=== PATIENT | female | born 1985 | race Caucasian/White ===

== ENCOUNTER 2016-08-31 01:59 | Emergency (ER) | payer SELFPAY ==
[~2016-08-31] VITALS: Ht 160 cm; Wt 81.6 kg
[~2016-08-31 01:59] MED LIST: ALDOMET500 MG PO; CALCIUM + VIT1 EACH PO; COLACE100 MG PO; DOXYCYCLINE HY100 MG PO; ENOXAPARIN SC; FENUGREEK500 MG PO; FLEXERIL10 MG PO; FLINTSTONES CO1 EACH; FLINTSTONES VITAMIN PO; FLINTSTONES1 TABLET PO; HYDRALAZINE HCL10 MG PO; IRON325 M1 PO; LOPRESSOR100 M1 PO; PHENERGAN25 MG PR; PRENATAL MULTI1 EAC2 PO; PRENATAL TABLE1 EACH PO; PRENATAL VITAM1 EAC3 PO; PRINIVIL10 MG PO; REGLAN10 MG PO; Tylenol Regular Stre PO; ULTRAM50 MG PO; VICODIN,LORT1 TABLET PO; ZOFRAN ODT4 MG PO; ZOFRAN4 MG PO; ZOFRAN8 M1 PO; ZOFRAN8 MG PO; Zantac PO; [UNRECOGNIZED DRUG - OTHER] PO; [UNRECOGNIZED DRUG - OTHER] SC
[2016-08-31 02:41] LABS: EOSINOPHIL (%) 1.3 % (0-5); EOSINOPHIL COUNT 0.2 K/uL (0-0.3); HEMATOCRIT 36.2 % (36.0-46.0); IMMATURE GRANULOCYTE (%) 0.7 % (0.0-0.7); IMMATURE GRANULOCYTE COUNT 0.1 K/uL; INSTRUMENT ABS NEUTROPHIL CT 10.3 K/uL; MCH 25.2 PG (29.0-34.0); MCHC 31.8 G/DL (30.0-36.0); MCV 79.2 FL (83-99); MEAN PLAT.VOLUME 9.4 uM^3 (9.5-12.4); MONOCYTE (%) 4.6 % (3-12); MONOCYTE COUNT 0.6 K/uL (0-0.8); NEUTROPHIL (%) 85.2 % (45-76); NEUTROPHIL COUNT 10.3 K/uL (1.8-6.4); PLATELET COUNT 271 K/uL (156-360); RBC DIS.WIDTH-CV 13.7 % (11.8-14.6); RBC DIS.WIDTH-SD 38.6 % (39-53); RED BLOOD COUNT 4.57 M/uL (3.80-5.20); WHITE BLOOD COUNT 12.1 K/uL (4.1-10.2)
[2016-08-31 02:52] LABS: CHLORIDE 108 mEq/L (99-109); POTASSIUM 3.3 mEq/L (3.7-5.4); SODIUM 141 mEq/L (136-147)
[2016-08-31 02:54] LABS: GLUCOSE 120 mg/dL (70-99)
[2016-08-31 02:55] LABS: ANION GAP 10 MEQ/L (2-14)
[2016-08-31 02:56] LABS: TOTAL BILIRUBIN 1.2 mg/dL (0.0-1.0)
[2016-08-31 02:57] LABS: ALKALINE PHOSPHATASE 57 IU/L (3-129)
[2016-08-31 02:58] LABS: GFR ESTIMATE (CALCULATED) > 59 mL/min/
[2016-08-31 02:59] LABS: UREA NITROGEN (BUN) 13 mg/dL (9-23)
[2016-08-31 03:06] LABS: QUANTITATIVE HCG < 4.0 MIU/ML
[2016-08-31 04:18] LABS: C DIFF TOXIN NEGATIVE (NEGATIVE)
[2016-08-31 04:42] LABS: PROBE CHECK PASS; SPECIMEN PROCESSING CONTROL PASS
[2016-08-31 06:31] LABS: ADD MIUA? NO; BILIRUBIN NEGATIVE; BLOOD NEGATIVE; COLOR YELLOW ((YELLOW)); GLUCOSE (STRIP) NEGATIVE; KETONES NEGATIVE; LEUKOCYTES NEGATIVE; NITRITE NEGATIVE; PROTEIN (STRIP) NEGATIVE; UCUL ADDED? NO; UROBILINOGEN 0.2 MG/DL (0.2-1.0)
[2016-08-31 06:37] LABS: SPECIFIC GRAVITY 1.075 (1.000-1.030)
[2016-08-31] MEDS ORDERED: ZOFRAN ODT4 MG PO (06:51)
[2016-08-31] MEDS ORDERED: REGLAN10 MG PO (06:51)
[2016-08-31] MEDS ORDERED: BENTYL20 MG PO (06:51)
[2016-08-31 07:00] VITALS: BP 140/85
== END 2016-08-31 07:00 | disposition home or self-care (01) ==
LOC: EME 01:59
PROVIDERS: Emergency Medicine
DX: R11.10 Vomiting, unspecified (principal); R19.7 Diarrhea, unspecified; R10.32 Left lower quadrant pain; E87.6 Hypokalemia; E11.9 Type 2 diabetes mellitus without complications
CPT/HCPCS: 74177; 80053; 81003; 84702; 85025; 87493; 87506; 99281; 99285; J2405; J2765; J7030